=== PATIENT | male | born 1980 | race Caucasian/White ===

== ENCOUNTER → 2017-01-08 | Outpatient (REF) | payer OTHER ==
[2017-01-08 11:51] LABS: MEAN CORPUSCULAR HEMOGLOBIN 30.5 pg (27.0-33.0); MEAN CORPUSCULAR HGB CONC 35.7 g/dl (32.0-36.5); MEAN CORPUSCULAR VOLUME 85.5 fl (80.0-96.0); RED CELL DISTRIBUTION WIDTH 12.6 % (11.5-14.5); WHITE BLOOD COUNT 6.7 K/mm3 (4.0-10.0)
[2017-01-08 12:27] LABS: ALBUMIN 3.8 GM/DL (3.2-5.2); ALBUMIN/GLOBULIN RATIO 1.23 (1.00-1.93); ALKALINE PHOSPHATASE 68 U/L (45-117); ALT/SGPT 31 U/L (12-78); ANION GAP 10 MEQ/L (8-16); AST/SGOT 15 U/L (15-37); BILIRUBIN,TOTAL 0.3 MG/DL (0.2-1.0); BLOOD UREA NITROGEN 15 MG/DL (7-18); CALCIUM LEVEL 9.6 MG/DL (8.5-10.1); CARBON DIOXIDE LEVEL 28 MEQ/L (21-32); CHLORIDE LEVEL 102 MEQ/L (98-107); CHOLESTEROL LEVEL 213 MG/DL (<200); CREATININE FOR GFR 0.91 MG/DL (0.70-1.30); GLOMERULAR FILTRATION RATE > 60.0 (>60); GLUCOSE, FASTING 113 MG/DL (70-105); POTASSIUM SERUM 3.8 MEQ/L (3.5-5.1); SODIUM LEVEL 140 MEQ/L (136-145); TOTAL PROTEIN 6.9 GM/DL (6.4-8.2); TRIGLYCERIDES LEVEL 211 MG/DL (<150)
== END ==
LOC: M LABDRAW1 09:30
PROVIDERS: ATTEND Student in an Organized Health Care Education/Training Program
DX: F32.89 Other specified depressive episodes (principal); F17.200 Nicotine dependence, unspecified, uncomplicated

== ENCOUNTER → 2017-01-26 | Outpatient (REF) | payer OTHER ==
[2017-01-26 11:17] LABS: MEAN CORPUSCULAR HEMOGLOBIN 30.6 pg (27.0-33.0); MEAN CORPUSCULAR HGB CONC 35.2 g/dl (32.0-36.5); RED CELL DISTRIBUTION WIDTH 12.4 % (11.5-14.5); WHITE BLOOD COUNT 9.8 K/mm3 (4.0-10.0)
[2017-01-26 11:33] LABS: ALBUMIN 4.1 GM/DL (3.2-5.2); ALBUMIN/GLOBULIN RATIO 1.28 (1.00-1.93); ALKALINE PHOSPHATASE 73 U/L (45-117); ALT/SGPT 24 U/L (12-78); ANION GAP 9 MEQ/L (8-16); AST/SGOT 14 U/L (15-37); BILIRUBIN,TOTAL 0.4 MG/DL (0.2-1.0); BLOOD UREA NITROGEN 14 MG/DL (7-18); CALCIUM LEVEL 9.2 MG/DL (8.5-10.1); CARBON DIOXIDE LEVEL 28 MEQ/L (21-32); CHLORIDE LEVEL 103 MEQ/L (98-107); CHOLESTEROL LEVEL 188 MG/DL (<200); CREATININE FOR GFR 0.92 MG/DL (0.70-1.30); GLOMERULAR FILTRATION RATE > 60.0 (>60); GLUCOSE, FASTING 115 MG/DL (70-105); POTASSIUM SERUM 3.6 MEQ/L (3.5-5.1); SODIUM LEVEL 140 MEQ/L (136-145); TOTAL PROTEIN 7.3 GM/DL (6.4-8.2); TRIGLYCERIDES LEVEL 99 MG/DL (<150)
== END ==
LOC: M LABDRAW1 10:39
PROVIDERS: ATTEND Student in an Organized Health Care Education/Training Program
DX: I10 Essential (primary) hypertension (principal); F32.89 Other specified depressive episodes

== ENCOUNTER 2017-03-26 11:04 | Emergency (ER) | payer OTHER ==
[~2017-03-26] VITALS: Ht 175.3 cm; Wt 78.0 kg
[2017-03-26] MEDS ORDERED: TIZA2TA PO (11:16)
[2017-03-26] MEDS ORDERED: BENA10TA2 PO (11:16)
[2017-03-26] MEDS ORDERED: CHLO50TA PO (11:16)
[2017-03-26] MEDS: methylPREDNISolone INJ 125 MG/2 ML VIAL (J2930) IM ONE ×2 (12:05→12:38)
[2017-03-26] MEDS: KETOROLAC 60 MG/2 ML VIAL (J1885) IM ONE ×2 (12:05→12:38)
[2017-03-26 13:14] VITALS: BP 127/91
[2017-03-26] MEDS ORDERED: HYDR-3713 PO (13:17)
[2017-03-26] MEDS ORDERED: CYCL10TA PO (13:17)
--- NOTE | 2017-03-26 13:41 | REP ---
CT LUMBAR SPINE WITHOUT CONTRAST: 03/26/2017. Comparison: X-ray 01/27/2017. Clinical history: Trauma, rule out fracture. Findings: Axial images with soft tissue and bone window settings in both coronal and sagittal reconstructions provided. The normal gentle lordosis of the spine is seen. The vertebral body heights and contours were normal without compression deformity or destructive lesion. The disc space heights are maintained. Posterior elements show the spinous processes, lamina, transverse processes, facets and pedicles all intact and without fracture. Visualized portions of the SI joints, sacral ala and iliac wings were intact. That portion of the 12th and 11th ribs seen were unremarkable. The T12-L1 disc level shows no disc bulge herniation and no spinal or foraminal stenosis. At L1-2 there is no disc bulge or herniation and no spinal or foraminal stenosis. At L2-3 mild disc bulge flattening ventral thecal sac but no spinal or foraminal stenosis. At L3-4 there is a mild broad-based disc bulge without central canal stenosis. There is no foraminal stenosis. At L4-5 there is a right paracentral disc bulge abutting the ventral thecal sac. Cross-sectional area of the canal is adequate. There is no foraminal encroachment. At L5-S1 mild disc bulge without spinal stenosis or foraminal encroachment. Impression: 1. Disc bulge at L4-5 with small right paracentral protrusion flattening the ventral thecal sac but with cross-sectional area of the canal adequate. Foramina adequate. 2. Disc bulge at L3-4 and L5-S1 without spinal or foraminal stenosis. 3. No compression fractures or posterior element fractures. The visualized facets and portions of SI joints intact. Signed by Alberto Orr MD 03/26/2017 02:56 P
== END 2017-03-26 13:58 | disposition home or self-care (01) ==
LOC: M ED 12:23
DX: M51.36 Other intervertebral disc degeneration, lumbar region (principal); M51.37 Other intervertebral disc degeneration, lumbosacral region; G89.29 Other chronic pain; M54.9 Dorsalgia, unspecified; F17.200 Nicotine dependence, unspecified, uncomplicated

== ENCOUNTER → 2017-05-04 | Outpatient (CLI) | payer OTHER ==
[~2017-05-04] MED LIST: BENA10TA6 PO; CHLO50TA PO; CYCL10TA PO; HYDR-3713 PO; TIZA2TA PO
[2017-05-04 14:26] LABS: ANION GAP 7 MEQ/L (8-16); BLOOD UREA NITROGEN 13 MG/DL (7-18); CALCIUM LEVEL 9.5 MG/DL (8.5-10.1); CARBON DIOXIDE LEVEL 30 MEQ/L (21-32); CHLORIDE LEVEL 102 MEQ/L (98-107); CREATININE FOR GFR 0.99 MG/DL (0.70-1.30); GLOMERULAR FILTRATION RATE > 60.0 (>60); GLUCOSE, FASTING 128 MG/DL (70-105); POTASSIUM SERUM 3.9 MEQ/L (3.5-5.1); SODIUM LEVEL 139 MEQ/L (136-145)
== END ==
LOC: M LAB 12:36
PROVIDERS: ATTEND Student in an Organized Health Care Education/Training Program
DX: I10 Essential (primary) hypertension (principal)

== ENCOUNTER → 2017-05-06 | Outpatient (CLI) | payer OTHER ==
--- NOTE | 2017-05-06 13:57 | REP ---
MRI LUMBAR SPINE WITHOUT CONTRAST: HISTORY: Acute low back pain without sciatica. Comparison study is a CT study of the lumbar spine from March 26, 2017. TECHNIQUE: Sagittal and axial T1 and T2-weighted scans are acquired in the usual fashion with and without fat saturation. Sequences include spin echo, turbo spin echo, and STIR imaging sequences. MRI FINDINGS: Cortical and medullary bone signal intensity are normal. Vertebral body heights are preserved and alignment is normal. There is degenerative disc disease at L4-5 with decreased disc space height and signal intensity. Minimal narrowing of the L3-4 disc is also noted. Conus medullaris is normal in position and appearance at T12. No extra spinal abnormality is observed. Pedicles and posterior elements are intact. There is no evidence of spondylolysis or spondylolisthesis. Axial and sagittal images at L5-S1 demonstrate no significant abnormality. At L4-5, there is a right paracentral disc protrusion with annulus tear indenting the ventral margin of the thecal sac. There is mild diffuse bulging of the remainder of the disc margin. This is unchanged from the appearance on CT study. No neural foraminal encroachment is seen. At L3-4, there is evidence of right lateral disc bulging. Minimal bulging of the remainder of the disc margin is seen. No central canal stenosis is seen. No neural foraminal narrowing is seen. The L2-3 and L1-2 disc levels are unremarkable. IMPRESSION: Right lateral disc bulging at L3-4. Small right paracentral disc protrusion at L4-5 indenting the ventral margin of the thecal sac. Otherwise negative. Signed by Kervin Méndez MD 05/06/2017 03:34 P
== END ==
LOC: M RAD 12:36
PROVIDERS: ATTEND Student in an Organized Health Care Education/Training Program
DX: M51.26 Other intervertebral disc displacement, lumbar region (principal); M51.06 Intervertebral disc disorders with myelopathy, lumbar region

== ENCOUNTER → 2017-12-01 | Outpatient (REF) | payer OTHER ==
[2017-12-01 11:29] LABS: ESTIMATED AVERAGE GLUCOSE 126 MG/DL (60-110)
[2017-12-01 11:35] LABS: ALBUMIN 4.3 GM/DL (3.2-5.2); ALBUMIN/GLOBULIN RATIO 1.34 (1.00-1.93); ALKALINE PHOSPHATASE 50 U/L (45-117); ALT/SGPT 27 U/L (12-78); ANION GAP 8 MEQ/L (8-16); AST/SGOT 15 U/L (7-37); BILIRUBIN,TOTAL 0.5 MG/DL (0.2-1.0); BLOOD UREA NITROGEN 13 MG/DL (7-18); CALCIUM LEVEL 9.3 MG/DL (8.5-10.1); CARBON DIOXIDE LEVEL 29 MEQ/L (21-32); CHLORIDE LEVEL 102 MEQ/L (98-107); CREATININE FOR GFR 0.96 MG/DL (0.70-1.30); GLOMERULAR FILTRATION RATE > 60.0 (>60); GLUCOSE, FASTING 111 MG/DL (70-100); POTASSIUM SERUM 3.5 MEQ/L (3.5-5.1); SODIUM LEVEL 139 MEQ/L (136-145); TOTAL PROTEIN 7.5 GM/DL (6.4-8.2)
== END ==
LOC: M LABDRAW1 10:44
DX: R73.9 Hyperglycemia, unspecified (principal); I10 Essential (primary) hypertension
CPT/HCPCS: 83036

== ENCOUNTER → 2020-10-21 | Outpatient (CLI) | payer OTHER ==
[~2020-10-21] MED LIST changes: -BENA10TA6 PO; +BENA1TAB24 PO; +CYCL-707 PO; -CYCL10TA PO
== END ==
LOC: M LABSMTC 12:07
PROVIDERS: ATTEND Family Medicine
DX: Z20.828 Contact with and (suspected) exposure to other viral communicable diseases (principal)

== ENCOUNTER → 2021-04-22 | Outpatient (CLI) | payer OTHER ==
--- NOTE | 2021-04-23 08:21 | REP ---
INDICATION: SPRAIN COMPARISON: None. TECHNIQUE: AP, lateral, bilateral oblique views left foot. FINDINGS: Generalized age-related changes are appreciated. No evidence for acute fracture or dislocation. Surrounding soft tissues are grossly unremarkable. No subcutaneous emphysema or foreign body. IMPRESSION: Age-appropriate left foot radiographs.. No acute fracture or dislocation. <Electronically signed by Kristian Brooks > 04/23/21 [id number]
--- NOTE | 2021-04-23 08:28 | REP ---
INDICATION: SPRAIN COMPARISON: None. TECHNIQUE: AP, lateral, bilateral oblique views. FINDINGS: Soft tissue swelling noted. No acute fracture or dislocation. Joint spaces and ankle mortise appear intact. No subcutaneous emphysema or foreign body. IMPRESSION: Swelling. No obvious acute fracture or dislocation. <Electronically signed by Kristian Brooks > 04/23/21 [id number]
== END ==
LOC: M WUC 10:05
PROVIDERS: ATTEND Physician Assistant
DX: S93.402A Sprain of unspecified ligament of left ankle, initial encounter (principal); S93.602A Unspecified sprain of left foot, initial encounter; X58.XXXA Exposure to other specified factors, initial encounter; Y92.9 Unspecified place or not applicable

== ENCOUNTER → 2021-12-26 | Outpatient (CLI) | payer OTHER ==
[2021-12-26 10:53] LABS: BASO # 0.1 10^3/uL (0.0-0.2); EOS # 0.1 10^3/uL (0.0-0.5); EOS % 1.3 % (0.0-3.0); HEMATOCRIT 47.5 % (42.0-52.0); HEMOGLOBIN 16.4 g/dl (13.5-17.5); LYMPH # 1.6 10^3/uL (1.5-5.0); LYMPH % 26.3 % (24.0-44.0); MEAN CORPUSCULAR HEMOGLOBIN 29.6 pg (27.0-33.0); MEAN CORPUSCULAR HGB CONC 34.5 g/dl (32.0-36.5); MEAN CORPUSCULAR VOLUME 85.7 fl (80.0-96.0); MONO # 0.6 10^3/uL (0.0-0.8); MONO % 9.8 % (2.0-8.0); NEUTROPHILS # 3.8 10^3/uL (1.5-8.5); NEUTROPHILS % 61.3 % (36.0-66.0); PLATELET COUNT, AUTOMATED 393 10^3/uL (150-450); RED BLOOD COUNT 5.54 10^6/uL (4.30-6.10); WHITE BLOOD COUNT 6.2 10^3/uL (4.0-10.0)
[2021-12-26 10:58] LABS: APPEARANCE, URINE CLEAR (CLEAR); BACTERIA, URINE AUTO NEGATIVE (NEGATIVE); BILIRUBIN, URINE AUTO NEGATIVE (NEGATIVE); BLOOD, URINE BLOOD NEGATIVE (NEGATIVE); COLOR, URINE YELLOW (YELLOW); GLUCOSE, URINE (UA) AUTO NEGATIVE (NEGATIVE); KETONE, URINE AUTO NEGATIVE (NEGATIVE); LEUKOCYTE ESTERASE, URINE AUTO NEGATIVE (NEGATIVE); MUCUS, URINE SMALL (NEGATIVE); NITRITE, URINE AUTO NEGATIVE (NEGATIVE); PROTEIN, URINE AUTO NEGATIVE (NEGATIVE); RBC, URINE AUTO 0 /HPF (0-3); SPECIFIC GRAVITY URINE AUTO 1.012 (1.002-1.035); SQUAMOUS EPITHELIAL CELL UR AU 0 /HPF (0-6); UROBILINOGEN, URINE AUTO 0.2 mg/dL (0.0-2.0); WBC, URINE AUTO 0 /HPF (0-3)
[2021-12-26 11:51] LABS: ALBUMIN 4.2 GM/DL (3.2-5.2); ALT/SGPT 32 U/L (12-78); BILIRUBIN,TOTAL 0.4 MG/DL (0.2-1.0); BLOOD UREA NITROGEN 13 MG/DL (7-18); CALCIUM LEVEL 9.5 MG/DL (8.5-10.1); CARBON DIOXIDE LEVEL 24 MEQ/L (21-32); CHLORIDE LEVEL 108 MEQ/L (98-107); CHOLESTEROL LEVEL 184 MG/DL (<200); CHOLESTEROL RISK RATIO 4.181 (<5); CREATININE FOR GFR 1.02 MG/DL (0.70-1.30); FREE T4 1.05 NG/DL (0.76-1.46); GLOMERULAR FILTRATION RATE > 60.0 (>60); GLUCOSE, FASTING 122 MG/DL (70-100); HDL CHOLESTEROL 44 MG/DL (>40); LDL CHOLESTEROL 113 MG/DL (<100); NON-HDL-C 140 MG/DL; POTASSIUM SERUM 4.2 MEQ/L (3.5-5.1); SODIUM LEVEL 140 MEQ/L (136-145); THYROID STIMULATING HORMONE 0.625 uIU/ML (0.358-3.740); TOTAL PROTEIN 7.6 GM/DL (6.4-8.2); TRIGLYCERIDES LEVEL 134 MG/DL (<150)
[2021-12-26 11:52] LABS: CREATININE, URINE 92.5 MG/DL; MALB URINE SIEMENS < 5.0 MG/L; MAU/CREAT RATIO 5.4 MCG/MG (0.0-30.0)
[2021-12-26 12:23] LABS: HEMOGLOBIN A1c 5.8 %
== END ==
LOC: M PLAIMG 08:05
PROVIDERS: ATTEND Physician Assistant
DX: M25.552 Pain in left hip (principal); I10 Essential (primary) hypertension; R73.01 Impaired fasting glucose; Z13.220 Encounter for screening for lipoid disorders

== ENCOUNTER → 2021-12-29 | Outpatient (CLI) | payer OTHER | LOC: M RAD 14:21 | PROVIDERS: ATTEND Physician Assistant | DX: N50.812 Left testicular pain (principal) ==

== ENCOUNTER → 2022-04-15 | Outpatient (REF) | payer OTHER | LOC: M SMT 13:04 | PROVIDERS: ATTEND Urology | DX: Z30.2 Encounter for sterilization (principal) ==

== ENCOUNTER → 2022-05-27 | Outpatient (REF) | payer OTHER ==
[2022-05-27 13:03] LABS: SEMEN APPEARANCE OPAQUE (OPAQUE); SEMEN VISCOSITY LIQUID (LIQUID); WBC CONCENTRATION <=1 M/ml (<=1 M/ml)
== END ==
LOC: M SMT 12:44
PROVIDERS: ATTEND Urology
DX: Z30.8 Encounter for other contraceptive management (principal)

== ENCOUNTER → 2023-09-14 | Outpatient (CLI) | payer OTHER ==
[2023-09-14 11:53] LABS: BASO % 0.7 % (0.0-1.0); EOS # 0.1 10^3/uL (0.0-0.5); EOS % 2.6 % (0.0-3.0); HEMATOCRIT 45.5 % (42.0-52.0); HEMOGLOBIN 15.9 g/dl (13.5-17.5); LYMPH # 1.7 10^3/uL (1.5-5.0); LYMPH % 30.5 % (24.0-44.0); MEAN CORPUSCULAR HEMOGLOBIN 29.4 pg (27.0-33.0); MEAN CORPUSCULAR HGB CONC 34.9 g/dl (32.0-36.5); MEAN CORPUSCULAR VOLUME 84.1 fl (80.0-96.0); MONO # 0.7 10^3/uL (0.0-0.8); MONO % 12.8 % (2.0-8.0); NEUTROPHILS # 2.9 10^3/uL (1.5-8.5); NEUTROPHILS % 53.2 % (36.0-66.0); PLATELET COUNT, AUTOMATED 407 10^3/uL (150-450); RED BLOOD COUNT 5.41 10^6/uL (4.30-6.10); WHITE BLOOD COUNT 5.5 10^3/uL (4.0-10.0)
[2023-09-14 12:20] LABS: CREATININE, URINE 162.2 MG/DL; MAU/CREAT RATIO 2.4 MCG/MG (0.0-30.0)
[2023-09-14 12:23] LABS: ALBUMIN 4.1 G/DL (3.2-5.2); ALKALINE PHOSPHATASE 58 U/L (46-116); ALT/SGPT 27 U/L (7.0-40); AST/SGOT 20 U/L (<34); BILIRUBIN,TOTAL 0.6 MG/DL (0.3-1.2); BLOOD UREA NITROGEN 16 MG/DL (9-23); CALCIUM LEVEL 9.2 MG/DL (8.5-10.1); CARBON DIOXIDE LEVEL 28 MMOL/L (20-31); CHLORIDE LEVEL 101 MMOL/L (98-107); CHOLESTEROL LEVEL 167 MG/DL (<200); CHOLESTEROL RISK RATIO 3.46 (<5); CREATININE FOR GFR 0.88 MG/DL (0.70-1.30); GLOMERULAR FILTRATION RATE > 60.0 (>60); GLUCOSE, FASTING 106 MG/DL (60-100); HDL CHOLESTEROL 48.2 MG/DL (>40); NON-HDL-C 118.8 MG/DL; POTASSIUM SERUM 3.8 MMOL/L (3.5-5.1); SODIUM LEVEL 137 MMOL/L (136-145); TOTAL PROTEIN 7.1 G/DL (5.7-8.2); TRIGLYCERIDES LEVEL 59 MG/DL (<150)
[2023-09-14 12:57] LABS: HEMOGLOBIN A1c 5.6 % (4.0-6.0)
== END ==
LOC: M WUC 08:18
PROVIDERS: ATTEND Physician Assistant
DX: I10 Essential (primary) hypertension (principal); E78.00 Pure hypercholesterolemia, unspecified; K21.9 Gastro-esophageal reflux disease without esophagitis

== ENCOUNTER → 2023-10-13 | Outpatient (CLI) | payer OTHER | LOC: M SOG 07:50 | PROVIDERS: ATTEND Orthopaedic Surgery | DX: M54.2 Cervicalgia (principal) ==

== ENCOUNTER → 2023-11-06 | Outpatient (CLI) | payer OTHER | LOC: M RAD 08:04 | PROVIDERS: ATTEND Orthopaedic Surgery | DX: M54.12 Radiculopathy, cervical region (principal) ==

== ENCOUNTER → 2024-09-20 | Outpatient (REF) | payer OTHER ==
[2024-09-20 14:03] LABS: ALBUMIN 4.2 G/DL (3.2-5.2); ALKALINE PHOSPHATASE 68 U/L (40-129); ALT/SGPT 31 U/L (7.0-40); AST/SGOT 13 U/L (<34); BILIRUBIN,TOTAL 0.3 MG/DL (0.3-1.2); BLOOD UREA NITROGEN 16 MG/DL (9-23); CALCIUM LEVEL 10.2 MG/DL (8.5-10.1); CARBON DIOXIDE LEVEL 27 MMOL/L (20-31); CHLORIDE LEVEL 108 MMOL/L (98-107); CHOLESTEROL LEVEL 202 MG/DL (<200); CHOLESTEROL RISK RATIO 4.02 (<5); CREATININE FOR GFR 0.93 MG/DL (0.70-1.30); GLOMERULAR FILTRATION RATE > 60.0 (>60); GLUCOSE, FASTING 135 MG/DL (60-100); HDL CHOLESTEROL 50.2 MG/DL (>40); LDL CHOLESTEROL 133.4 MG/DL (<100); NON-HDL-C 151.8 MG/DL; POTASSIUM SERUM 3.8 MMOL/L (3.5-5.1); SODIUM LEVEL 141 MMOL/L (136-145); TOTAL PROTEIN 7.6 G/DL (5.7-8.2); TRIGLYCERIDES LEVEL 92 MG/DL (<150)
[2024-09-20 14:07] LABS: BASO # 0.1 10^3/uL (0.0-0.2); BASO % 0.7 % (0.0-1.0); EOS # 0.1 10^3/uL (0.0-0.5); EOS % 1.9 % (0.0-3.0); HEMATOCRIT 48.8 % (42.0-52.0); HEMOGLOBIN 16.8 g/dl (13.5-17.5); LYMPH # 1.7 10^3/uL (1.5-5.0); LYMPH % 22.3 % (24.0-44.0); MEAN CORPUSCULAR HEMOGLOBIN 28.6 pg (27.0-33.0); MEAN CORPUSCULAR HGB CONC 34.4 g/dl (32.0-36.5); MONO # 0.8 10^3/uL (0.0-0.8); MONO % 10.8 % (2.0-8.0); NEUTROPHILS # 4.7 10^3/uL (1.5-8.5); NEUTROPHILS % 63.2 % (36.0-66.0); PLATELET COUNT, AUTOMATED 367 10^3/uL (150-450); RED BLOOD COUNT 5.88 10^6/uL (4.30-6.10); WHITE BLOOD COUNT 7.4 10^3/uL (4.0-10.0)
[2024-09-20 14:36] LABS: HEMOGLOBIN A1c 5.9 % (4.0-6.0)
== END ==
LOC: M SFHCADAM 08:32
PROVIDERS: ATTEND Physician Assistant
DX: I10 Essential (primary) hypertension (principal); R73.01 Impaired fasting glucose; E78.00 Pure hypercholesterolemia, unspecified

== ENCOUNTER 2025-05-14 16:39 | Emergency (ER) | payer OTHER ==
[~2025-05-14] VITALS: Ht 172.7 cm; Wt 89.9 kg
[2025-05-14 16:41] VITALS: BP 154/93; TEMP 98.2; O2SAT 97
[2025-05-14] MEDS ORDERED: PANT40TA29 (16:48)
== END 2025-05-14 19:53 | disposition left against medical advice (07) ==
LOC: M ED 16:39
DX: Z53.21 Procedure and treatment not carried out due to patient leaving prior to being seen by health care provider (principal)

== ENCOUNTER → 2025-09-05 | Outpatient (REF) | payer OTHER ==
[~2025-09-05] MED LIST changes: +PANT40TA29
[2025-09-05 13:42] LABS: PLATELET COUNT, AUTOMATED 414 10^3/uL (150-450)
[2025-09-05 14:07] LABS: ESTIMATED AVERAGE GLUCOSE 131.0 MG/DL (60-110)
[2025-09-05 14:15] LABS: CREATININE, URINE 48.4 MG/DL
[2025-09-05 14:18] LABS: ALT/SGPT 24.0 U/L (7.0-40); AST/SGOT 22.0 U/L (<34); CALCIUM LEVEL 9.5 MG/DL (8.5-10.1); CARBON DIOXIDE LEVEL 28.0 MMOL/L (20-31); CHLORIDE LEVEL 102.0 MMOL/L (98-107); CHOLESTEROL LEVEL 204.0 MG/DL (<200); CHOLESTEROL RISK RATIO 3.52 (<5); CREATININE FOR GFR 1.09 MG/DL (0.70-1.30); FREE T4 1.11 NG/DL (0.89-1.76); GLOMERULAR FILTRATION RATE 85.3 (>60); LDL CHOLESTEROL 99.4 MG/DL (<100); NON-HDL-C 146.2 MG/DL; POTASSIUM SERUM 3.9 MMOL/L (3.5-5.1); SODIUM LEVEL 140.0 MMOL/L (136-145); TRIGLYCERIDES LEVEL 234.0 MG/DL (<150)
[2025-09-05 14:19] LABS: MALB URINE SIEMENS < 3.0 MG/L
== END ==
LOC: M SFHCADAM 10:53
PROVIDERS: ATTEND Family Medicine
DX: I10 Essential (primary) hypertension (principal); F32.89 Other specified depressive episodes; R73.01 Impaired fasting glucose; E78.00 Pure hypercholesterolemia, unspecified

== ENCOUNTER → 2025-09-05 | Outpatient (CLI) | payer OTHER | LOC: M ADAMS 11:30 | PROVIDERS: ATTEND Family Medicine | DX: R05.3 Chronic cough (principal) ==